=== PATIENT | female | born 1990 | race Caucasian/White ===

== ENCOUNTER 2023-05-11 00:25 | Emergency (ER) | payer OTHER, SELFPAY ==
[2023-05-11 00:29] VITALS: BP 131/12; PULSE 91; RESP 17; TEMP 36.8; O2SAT 96; BMI 32.3
--- NOTE | 2023-05-11 01:10 | ED_ITS ---
HPI - Back Pain/Injury General Chief Complaint: Back Pain/Injury Stated Complaint: BACK PAIN Time Seen by Provider: 05/11/23 00:32 Source: patient and family Mode of arrival: Wheelchair Limitations: no limitations History of Present Illness HPI Narrative: Patient woke the morning of 05/10/23 with low back pain. She initially denied any injury or activity that might have precipitated the pain but later recalled lif ting up her dog the day before. As the day progressed after the onset fo the pain, it decreased with activity of her daily routine. But tonight the pain steadily worsened. She took a Midol this morning but nothing since then. No urinary symptoms. No fever or chills. No blood in urine or stool. Pain increased with movement of the low back. Related Data Previous Rx's Medication Instructions Recorded methocarbamol 750 mg tablet 750 mg PO Q6H PRN pain #30 tabs 05/11/23 nabumetone 750 mg tablet 750 mg PO BID PRN pain #14 tabs 05/11/23 Allergies Allergy/AdvReac Type Severity Reaction Status Date / Time amoxicillin Allergy Intermediate Verified 05/11/23 00:34 Penicillins Allergy Intermediate Verified 05/11/23 00:34 Exam Narrative Exam Narrative: afebrile General: Alert, no acute distress, patient resting comfortably Skin: warm, intact, no pallor noted Head: Normocephalic, atraumatic Eye: Normal conjunctiva Respiratory: No acute distress Back: inspection of the back shows no obvious deformity, no swelling, no ecchymosis, contusion, abrasion, swelling, erythema, fluctuance or induration. Tenderness noted to bilateral parasacral soft tissue. Some spasm is noted in the right paralumbar soft tissue. Straight leg raise on left is positive. Straight leg raise on right is positive. No CVA tenderness noted bilaterally. Musculoskeletal: Normal 5/5 strength at ankles with dorsiflexion and plantar flexion. Patient is able to ambulate. Normal sensation noted to both lower extremities. Neurological: AAOx4, normal sensory and motor observed. Psychiatric: Cooperative and interactive. Constitutional Vital Signs, click to edit/add: Last Vital Signs Temp 98.2 F 05/11/23 00:29 Pulse 91 H 05/11/23 00:29 Resp 17 05/11/23 00:29 BP 131/12 L 05/11/23 00:29 Pulse Ox 96 03/17/24 00:29 O2 Del Method Room Air 05/11/23 00:29 Course Vital Signs Vital signs: Vital Signs Temperature 98.2 F 05/11/23 00:29 Pulse Rate 91 H 05/11/23 00:29 Respiratory Rate 17 05/11/23 00:29 Blood Pressure 131/12 L 05/11/23 00:29 Pulse Oximetry 96 05/11/23 00:29 Oxygen Delivery Method Room Air 05/11/23 00:29 Temperature 98.2 F 05/11/23 00:29 Pulse Rate 91 H 05/11/23 00:29 Respiratory Rate 17 05/11/23 00:29 Blood Pressure 131/12 L 05/11/23 00:29 Pulse Oximetry 96 05/11/23 00:29 Oxygen Delivery Method Room Air 05/11/23 00:29 MDM - Back Pain/Injury MDM Narrative Medical decision making narrative: Patient given IM Solumedrol and IM Toradol along with oral Robaxin. On recheck at 0135 her pain had lessened and she felt less spasming in the low back. Patient discharged home with prescriptions for Relafen and Robaxin. She will see her PCP for follow up although I encouraged ED return if she worsens. Discharge Plan Discharge Stand Alone Forms: Portal Instructions Chief Complaint: Back Pain/Injury Clinical Impression: Low back pain, Strain of lumbar region Patient Disposition: Home, Self-Care Time of Disposition Decision: 01:40 Prescriptions / Home Meds: New nabumetone 750 mg tablet 750 mg PO BID PRN (Reason: pain) Qty: 14 0RF methocarbamol 750 mg tablet 750 mg PO Q6H PRN (Reason: pain) Qty: 30 0RF Instructions: Acute Low Back Pain (ED), Low Back Strain (ED), Lower Back Exercises (ED) Referrals: JUANA BRODY [Primary Care Provider] - 1 week
[2023-05-11] MEDS: METHOCARBAMOL 500 MG TABLET PO (01:21)
[2023-05-11] MEDS: KETOROLAC TROMETHAMINE 60 MG/2 ML VIAL IM (01:22)
[2023-05-11] MEDS: METHYLPREDNISOLONE SOD SUCC PF 125 MG/2 ML VIAL IM (01:22)
[2023-05-11 01:44] VITALS: BP 128/80; PULSE 88; RESP 16; O2SAT 99
== END 2023-05-11 01:45 | disposition home or self-care (01) ==
PROVIDERS: Emergency Provider Emergency Medicine; PCP Family Medicine
DX: S39.012A Strain of muscle, fascia and tendon of lower back, initial encounter (principal); X50.9XXA Other and unspecified overexertion or strenuous movements or postures, initial encounter
CPT/HCPCS: 96372; 99284; J2930